=== PATIENT | male | born 2000 | race African-American/Black ===

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

== ENCOUNTER 2019-07-13 10:59 | Emergency (ER) | payer MEDICAID ==
[2019-07-13 11:39] VITALS: BP 138/69
--- NOTE | 2019-07-13 12:18 | ER Document Report ---
HPI - HPI Time Seen by Provider: 07/13/19 12:11 Notes: Patient is a 19-year-old male no significant past medical history who presents stating that he is 19 years old and does not want to have any medical issues and does have diabetes in his family so he want to come to the doctor to get evalua beth. Patient states he has not been the doctor in a long time. He does not have a family provider. He is able to eat and drink without difficulty. He is urinating normally and having normal bowel movements. He has no areas of pain or discomfort. Denies drug allergies. Patient states that he is here to "get checked out." Denies any headache, fever, head injury, neck pain, changes in vision/speech/mentation/hearing, URI, sore throat, chest pain, palpitations, syncope, cough, shortness of breath, wheeze, dyspnea, abdominal pain, nausea/vomiting/diarrhea, urinary retention, dysuria, hematuria, loss of control of bowel or bladder, numbness/tingling, saddle anesthesia, muscle paralysis/weakness, or rash. - ROS Systems Reviewed and Negative: Yes All other systems reviewed and negative Past Medical History - Social History Smoking Status: Current Every Day Smoker Family History: Reviewed & Not Pertinent Renal/ Medical History: Denies: Hx Peritoneal Dialysis Vertical Provider Document - CONSTITUTIONAL Agree With Documented VS: Yes Notes: PHYSICAL EXAMINATION: GENERAL: Well-appearing, well-nourished and in no acute distress. HEAD: Atraumatic, normocephalic. EYES: Pupils equal round and reactive to light, extraocular movements intact, sclera anicteric, conjunctiva are normal. ENT: Nares patent and without discharge. oropharynx clear without exudates. No tonsilar hypertrophy or erythema. Moist mucous membranes. NECK: Normal range of motion, supple without lymphadenopathy LUNGS: Breath sounds clear to auscultation bilaterally and equal. No wheezes rales or rhonchi. HEART: Regular rate and rhythm without murmurs, rubs, gallops. ABDOMEN: Soft, nontender, nondistended abdomen. No guarding, no rebound. Normal bowel sounds present. No CVA tenderness bilaterally. Musculoskeletal: FROM to passive/active. Strength 5+/5. Extremities: No cyanosis, clubbing, or edema b/l. Peripheral pulses 2+. Capillary refill less than 3 seconds. NEUROLOGICAL: Cranial nerves grossly intact. Normal speech, normal gait. Normal sensory, motor exams PSYCH: Normal mood, normal affect. SKIN: Warm, Dry, normal turgor, no rashes or lesions noted. - INFECTION CONTROL TRAVEL OUTSIDE OF THE [place] IN LAST 30 DAYS: No Course - Re-evaluation Re-evalutation: 07/13/19 Patient is an afebrile, well-hydrated, 19-year-old male who presents very worried well visit. Vitals are acceptable Tachycardia, tachypnea, hypoxia. PE is otherwise unremarkable. Patient is nontoxic-appearing and is tolerating p.o. without difficulty. I did review with patient that we do not do general medical exams here and his Accu-Chek was unre markable. No further work-up is warranted at this time. He is otherwise asymptomatic. Low suspicion for any other systemic or emergent condition at this time. Patient to follow-up with a family doctor in the next week. Return to the ED with any other worsening/concerning symptoms. Patient is in agreement. - Vital Signs Vital signs: Temp Pulse Resp BP Pulse Ox 97.9 F 86 20 138/69 H 99 07/13/19 11:39 07/13/19 11:39 07/13/19 11:39 07/13/19 11:39 07/13/19 11:39 Discharge - Discharge Clinical Impression: Worried well Condition: Stable Disposition: HOME, SELF-CARE Additional Instructions: Maintain adequate fluid and food intake healthy diet Monitor blood pressure daily and keep a log Monitor symptoms for any acute changes Recheck with your PCM in 1 week Return to the ED with any worsening symptoms and/or development of fever, headache, chest pain, palpitations, syncope, shortness of breath, trouble breathing, abdominal pain, n/v/d, blood in stool/urine, loss of control of elvis wel/bladder, urinary retention, muscle weakness/paralysis, numbness/tingling, or other worsening symptoms that are concerning to you. Forms: Elevated Blood Pressure, Smoking Cessation Education Referrals: [facility] [Provider Group] - Follow up as needed [facility] [Provider Group] - Follow up as needed
== END 2019-07-13 12:33 | disposition home or self-care (01) ==
LOC: ER 10:59
DX: Z71.1 Person with feared health complaint in whom no diagnosis is made (principal); Z83.3 Family history of diabetes mellitus; F17.200 Nicotine dependence, unspecified, uncomplicated
CPT/HCPCS: 99283